=== PATIENT | female | born 1965 | race African-American/Black ===

== ENCOUNTER 2020-12-24 23:00 | Emergency (ER) | payer OTHER ==
[2020-12-24 23:35] VITALS: BP 151/87; PULSE 78; TEMP 98.2; BMI 30.4
[2020-12-25] MEDS ORDERED: ACETAMINOPHEN 500 MG TABLET (FP) PO ONE (00:14)
[2020-12-25] MEDS ORDERED: LIDOCAINE 5% TOPICAL PATCH TP ONE (00:24)
[2020-12-25] MEDS ORDERED: LIDOCAINE 5% TOPICAL PATCH ONE (00:47)
[2020-12-25] MEDS ORDERED: ACETAMINOPHEN 500 MG TABLET (FP) ONE (00:50)
[2020-12-25] MEDS ORDERED: LIDOCAINE PATCH REMOVAL MC ONE (13:00)
== END 2020-12-25 02:34 | disposition home or self-care (01) ==
LOC: JER 23:00
PROC: 2W3CX1Z Immobilization of Right Lower Arm using Splint (ICD-10-PCS; principal; 2020-12-24)
DX: S52.502A Unspecified fracture of the lower end of left radius, initial encounter for closed fracture (principal); Y99.9 Unspecified external cause status
CPT/HCPCS: 73090-TC-LT-FY; 73110-TC-LT-FY; 73130-TC-LT-FY; 99284-25

== ENCOUNTER 2024-03-18 11:17 | Emergency (ER) | payer OTHER ==
[2024-03-18 11:30] VITALS: BP 128/87; PULSE 82; RESP 17; TEMP 98.4; BMI 30.4
[2024-03-18] MEDS ORDERED: IBUPROFEN 600 MG TABLET (FP) PO ONE (12:51)
[2024-03-18] MEDS ORDERED: METHOCARBAMOL 500 MG TABLET ONE (12:51)
[2024-03-18] MEDS: METHOCARBAMOL 500 MG TABLET PO ONE (12:53)
[2024-03-18] MEDS: IBUPROFEN 600 MG TABLET (FP) PO ONE (12:53)
== END 2024-03-18 13:22 | disposition home or self-care (01) ==
LOC: JERFT 11:17
DX: M25.511 Pain in right shoulder (principal); R51.9 Headache, unspecified; W01.0XXA Fall on same level from slipping, tripping and stumbling without subsequent striking against object, initial encounter; Y99.0 Civilian activity done for income or pay
CPT/HCPCS: 73030-TC-RT-FY; 99283-25